=== PATIENT | male | born 1955 | race Two or more races ===

== ENCOUNTER 2017-11-28 06:03 | Inpatient (IN) | payer BC ==
[2017-11-25 12:31] LABS: Basophils # (auto) 0.1 uL; Basophils % (auto) 1.1 % (0.0-2.0); Eosinophils # (auto) 0.3 uL; Eosinophils % (auto) 5.4 % (0.0-7.0); Hematocrit 45.2 % (41.0-53.0); Hemoglobin 15.1 g/dL (13.5-17.5); Lymphocytes # (auto) 1.7 uL; Lymphocytes % (auto) 33.7 % (10.0-50.0); Mean Corpuscular Hemoglobin 32.1 pg (28.0-32.0); Mean Corpuscular Hgb Conc. 33.3 g/dL (32.0-36.0); Mean Corpuscular Volume 96.4 fL (80.0-100.0); Monocytes # (auto) 0.3 uL; Monocytes % (auto) 6.2 % (0.0-12.0); Neutrophils # (auto) 2.6 uL; Neutrophils % (auto) 53.6 % (37.0-80.0); Platelet Count (auto) 260 10^3/uL (140-450); Red Blood Cells 4.69 10^6/uL (4.5-5.90); Red Cell Distribution Width 13.9 % (11.8-14.3); White Blood Cell 4.9 10^3/uL (4.4-10.8)
[2017-11-25 12:44] LABS: INR 0.95 (0.9-1.15); Prothrombin Time 10.4 sec (9.37-12.3)
[2017-11-25 12:46] LABS: BUN/Creatinine Ratio 23.4; Calcium 8.6 mg/dL (8.5-10.1); Potassium 4.3 mmol/L (3.5-5.1)
[2017-11-25 12:57] LABS: Urine Bacteria NONE SEEN /hpf (None Seen); Urine Blood Negative /uL (Negative); Urine Specific Gravity 1.022 (1.001-1.035); Urine WBC 1 /hpf (0 - 3)
[~2017-11-28] VITALS: Ht 167.6 cm; Wt 65.9 kg
[~2017-11-28 06:03] MED LIST: GABA100C9 PO
[2017-11-28] MEDS ORDERED: ceFOXitin 2GM/100ML 100 ML IV ONE (07:09)
[2017-11-28] MEDS ORDERED: LIDOCAINE W/ EPINEPHRINE 1 % INJ 30ML ONE (07:17)
[2017-11-28] MEDS ORDERED: BUPIVACAINE 0.25% INJ 50ML VIAL ONE (07:17)
[2017-11-28] MEDS ORDERED: LIDOCAINE 1% (LOCAL ANESTH.) PF 5ml SDV ONE (07:18)
[2017-11-28] MEDS ORDERED: SUCCINYLCHOLINE CHLORIDE 20 MG/ML 10ML VIAL IV ONE (07:18)
[2017-11-28] MEDS ORDERED: PROPOFOL 10 MG/ML 20 ML IV ONE (07:21)
[2017-11-28] MEDS ORDERED: MIDAZOLAM HCL 1MG/1ML-2 ML VIAL ONE (07:21)
[2017-11-28] MEDS ORDERED: ROCURONIUM 10MG/ML 10ML VIAL IV ONE (07:21)
[2017-11-28] MEDS ORDERED: fentaNYL CITRATE 100 MCG/2 ML VL ONE (07:50)
[2017-11-28] MEDS ORDERED: NALOXONE HCL 0.4 MG/ML VIAL IV PRN (08:00)
[2017-11-28] MEDS ORDERED: ONDANSETRON HCL 4 MG/2 ML VIAL IV ONE (08:00)
[2017-11-28] MEDS ORDERED: HYDROmorphone HCL 2 MG/ML VL ONE (08:29)
[2017-11-28] MEDS ORDERED: ONDANSETRON HCL 4 MG/2 ML VIAL IV PRN (09:45)
[2017-11-28] MEDS ORDERED: diphenhdrAMINE HCL 50 MG/1 ML VL IV PRN (09:45)
[2017-11-28] MEDS ORDERED: NEOSTIGMINE 1 MG/ML INJ (10mg/10ML VIAL) ONE (11:05)
[2017-11-28] MEDS ORDERED: GLYCOPYRROLATE 0.2 MG/ML 1ML VIAL ONE (11:05)
[2017-11-28] MEDS ORDERED: POVIDONE IODINE 10 % TOPICAL OINT 30GM TOP ONE (11:22)
[2017-11-28] MEDS: MORPHINE SULFATE 4 MG/ML SYR/VIAL IV PRN ×3 (11:54→12:40)
[2017-11-28] MEDS ORDERED: MORPHINE SULF INJ 2 MG/ML SYRINGE 1ML ONE (12:39)
[2017-11-28 12:50] LABS: Calcium 8.1 mg/dL (8.5-10.1); Potassium 4.4 mmol/L (3.5-5.1)
[2017-11-28 13:00] VITALS: BP 150/78
[2017-11-28] MEDS: D5W/SOD CHL 0.45% 1,000 ML IV SCH ×2 (13:57→21:00)
[2017-11-28] MEDS: GABAPENTIN 100 MG CAP PO SCH ×2 (14:00→22:00)
[2017-11-28] MEDS: CEFOXITIN SODIUM 1 GM in D5W 5% 50 ML IV SCH (16:43)
[2017-11-28 17:00] VITALS: BP 118/78
[2017-11-28] MEDS: HYDROmorphone HCL 2 MG/ML VL IV PRN (22:46)
[2017-11-28 22:49] VITALS: BP 107/55
[2017-11-29] MEDS: HYDROmorphone HCL 2 MG/ML VL IV PRN ×3 (00:30→08:49)
[2017-11-29] MEDS: D5W/SOD CHL 0.45% 1,000 ML IV SCH ×3 (01:41→18:28)
[2017-11-29 05:41] VITALS: BP 98/58
[2017-11-29] MEDS: GABAPENTIN 100 MG CAP PO SCH ×2 (06:00→15:49)
[2017-11-29] MEDS: CEFOXITIN SODIUM 1 GM in D5W 5% 50 ML IV SCH ×3 (07:15)
[2017-11-29 08:51] VITALS: BP 100/65
[2017-11-29] MEDS: ACETAMINOPHEN/CODEINE#3 (300/30mg) TAB PO PRN ×2 (10:53→17:32)
[2017-11-29 13:00] VITALS: BP 113/62
[2017-11-29 16:11] VITALS: BP 119/65
== END 2017-11-29 18:20 | disposition home or self-care (01) | DRG 708 ==
LOC: SUR 06:03 → TELE-WESTW 06:04
PROVIDERS: ADMIT Urology; ATTEND Urology
PROC: 07TH4ZZ Resection of Right Inguinal Lymphatic, Percutaneous Endoscopic Approach (ICD-10-PCS; 2017-11-28)
PROC: 07TJ4ZZ Resection of Left Inguinal Lymphatic, Percutaneous Endoscopic Approach (ICD-10-PCS; 2017-11-28)
PROC: 8E0W4CZ Robotic Assisted Procedure of Trunk Region, Percutaneous Endoscopic Approach (ICD-10-PCS; 2017-11-28)
PROC: 0VT04ZZ Resection of Prostate, Percutaneous Endoscopic Approach (ICD-10-PCS; principal; 2017-11-28 07:32)
DX: C61 Malignant neoplasm of prostate (principal); Z90.49 Acquired absence of other specified parts of digestive tract
CPT/HCPCS: 36415; 80048; 81001; 85025; 85610; 85730; 86850; 86900; 86901; 87086; J0330; J0694; J2250; J2704; J3490; J7060

== ENCOUNTER 2017-12-02 20:17 | Emergency (ER) | payer BC ==
[~2017-12-02] VITALS: Ht 167.6 cm; Wt 57.2 kg
[2017-12-02] MEDS ORDERED: SODIUM CHLORIDE 0.9% 1,000 ML IV ONE (21:00)
[2017-12-02 21:13] LABS: Basophils # (auto) 0 uL; Basophils % (auto) 0.3 % (0.0-2.0); Eosinophils # (auto) 0.2 uL; Eosinophils % (auto) 2.1 % (0.0-7.0); Hematocrit 39.3 % (41.0-53.0); Hemoglobin 13.3 g/dL (13.5-17.5); Lymphocytes # (auto) 1.5 uL; Lymphocytes % (auto) 16.4 % (10.0-50.0); Mean Corpuscular Hgb Conc. 33.8 g/dL (32.0-36.0); Mean Corpuscular Volume 94.8 fL (80.0-100.0); Monocytes # (auto) 0.5 uL; Monocytes % (auto) 5.9 % (0.0-12.0); Neutrophils # (auto) 6.8 uL; Neutrophils % (auto) 75.3 % (37.0-80.0); Platelet Count (auto) 316 10^3/uL (140-450); Red Blood Cells 4.15 10^6/uL (4.5-5.90); Red Cell Distribution Width 13.4 % (11.8-14.3)
[2017-12-02 21:32] LABS: Albumin 3.4 g/dL (3.4-5.0); BUN/Creatinine Ratio 16.2; Calcium 8.6 mg/dL (8.5-10.1); Potassium 3.9 mmol/L (3.5-5.1)
[2017-12-02 21:34] LABS: Bilirubin, Total 0.4 mg/dL (0.2-1.0); Total Protein 7.9 g/dL (6.4-8.2)
[2017-12-02] MEDS ORDERED: MORPHINE SULFATE 4 MG/ML SYR/VIAL IV ONE (22:15)
[2017-12-02] MEDS ORDERED: ONDANSETRON HCL 4 MG/2 ML VIAL IV ONE (22:15)
[2017-12-02] MEDS ORDERED: ONDANSETRON HCL 4 MG/2 ML VIAL ONE (22:16)
[2017-12-02] MEDS ORDERED: MORPHINE SULFATE INJECTION 1 ML ONE (22:16)
[2017-12-03] VITALS: BP 128/75
[2017-12-03] MEDS ORDERED: LIDOCAINE HCL 2% TOP JELLY 5ML TOP ONE (00:15)
== END 2017-12-03 01:34 | disposition home or self-care (01) ==
LOC: ER 20:17
DX: R33.9 Retention of urine, unspecified (principal); I10 Essential (primary) hypertension; Z85.46 Personal history of malignant neoplasm of prostate
CPT/HCPCS: 36415; 74018; 80053; 85025; 96374; 96375; 99285; J2270; J2405; J7030